=== PATIENT | male | born 1995 ===

== ENCOUNTER 2017-08-01 01:45 | Day surgery (SDC) | payer BC ==
[2017-08-01] VITALS (9 sets, daily range): BP systolic 113–144; BP diastolic 60–83
[~2017-08-01] VITALS: Ht 193 cm; Wt 104.8 kg
[~2017-08-01 01:45] MED LIST: ALB6.7R INH; BUDE10.2 INH; IBUP200C71 PO; LORA-629 PO; RANI-324 PO
[2017-08-01] MEDS: FAMOTIDINE 20 MG TAB PO ONE ×2 (10:36→10:38)
[2017-08-01] MEDS ORDERED: NORMOSOL R SOLN(*) 1000 ML BAG 1,000 ML IV PRN (11:00)
[2017-08-01] MEDS ORDERED: ceFAZolin(*) 1 GM VIAL 1 GM in NS(*) 0.9% 100 ML ADDVANT BAG 100 ML IVPB ONE (11:00)
[2017-08-01] MEDS ORDERED: MIDAZOLAM 2 MG/2 ML VIAL IVP PRN (11:00)
[2017-08-01] MEDS ORDERED: LIDOCAINE/SOD BICARB 8.4% SYR ID ONE (11:00)
[2017-08-01] MEDS ORDERED: ceFAZolin(*) 2GM/D5W 50ML 50 ML IVPB ONE (11:30)
[2017-08-01 11:39] LABS: PLATELET COUNT, AUTOMATED 243 K/uL (150-450)
[2017-08-01] MEDS ORDERED: fentaNYL CITR 250 MCG/5 ML AMP ONE (11:41)
[2017-08-01] MEDS ORDERED: PROPOFOL EMUL(*) 10MG/ML 20 ML 20 ML ONE (11:41)
[2017-08-01] MEDS ORDERED: DEXAMETHASONE SOD PHOS 10MG/ML ONE (11:41)
[2017-08-01] MEDS ORDERED: ONDANSETRON 4 MG/2 ML VIAL ONE (11:41)
[2017-08-01] MEDS ORDERED: SUGAMMADEX SOD 200 MG/2 ML SDV ONE (11:56)
[2017-08-01] MEDS ORDERED: ROCURONIUM BROM 10 MG/ML 10 ML ONE (12:00)
[2017-08-01] MEDS ORDERED: GLYCOPYRROLATE 0.2 MG/ML SDV ONE (12:00)
[2017-08-01] MEDS ORDERED: KETAMINE HCL 200 MG/20 ML MDV ONE (12:00)
[2017-08-01] MEDS ORDERED: ROPIVACAINE 0.5% 20 ML VIAL ONE (12:19)
[2017-08-01] MEDS ORDERED: HALOPERIDOL LACT 5 MG/ML VIAL IM ONE (13:33)
[2017-08-01] MEDS ORDERED: fentaNYL CITR 100 MCG/2 ML AMP ONE ×3 (14:27→15:51)
[2017-08-01] MEDS ORDERED: DOCU-416 PO (15:18)
[2017-08-01] MEDS ORDERED: OXYC-373 PO (15:18)
--- NOTE | 2017-08-01 15:21 | Short(Outpt) Discharge Summary ---
Discharge Summary Reason for Hosp/Final Diag: (1) Right inguinal hernia Status: Chronic Hospital Course & Plan: Robotic RIH repair completed without problems. Departure Discharge to: Home, Self Care Discharge Instructions Home Meds Active Scripts Docusate Sodium (COLACE) 100 Mg Capsule, 1 CAP PO BID, #30 CAP 0 Refills TAKE WITH A FULL GLASS OF WATER Prov:PINKY FRANKLIN MD 08/01/17 Oxycodone Hcl/Acetaminophen (OXYCODONE-ACETAMINOPHEN 5-325) 1 Each Tablet, 1-2 TAB PO Q4H Y for PAIN, #30 TAB 0 Refills Prov:PINKY FRANKLIN MD 08/01/17 Reported Medications Budesonide/Formoterol Fumarate (SYMBICORT 160-4.5 MCG INHALER) 10.2 Gm Inh, 10.2 GM INH BID, INH 07/25/17 Loratadine (LORATADINE) 10 Mg Tablet, 10 MG PO DAILY 07/25/17 Ranitidine Hcl (ZANTAC) 150 Mg Tablet, 150 MG PO BID, TAB 07/25/17 Albuterol Sulfate (PROVENTIL HFA) 6.7 Gm Inh, 1-2 PUFF INH BID, INH 07/12/17 Discontinued Reported Medications Ibuprofen (IBUPROFEN) Unknown Strength Capsule, PO Q6H, CAPSULE 07/12/17 Follow up Referrals: General Surgery - 08/23/17 @ Surgery, General with Pinky Franklin Md You have a follow up appointment scheduled with Dr. Franklin on 08/23/17, at 9:45am. Diet: Regular Activity: No Heavy Lifting Special Instructions: You may remove the white surgical dressings on 08/03/17, then you can shower. After showering, leave the incisions open to air but leave the steristrips in place until they fall off on their own. Do not immerse the incisions for 2 weeks. Avoid any activities that involve straining or lifting more than 10 pounds for 2 weeks. PINKY FRANKLIN MD Aug 01, 2017 15:21
--- NOTE | 2017-08-01 15:33 | Post Operative Progress Note ---
Post Operative Progress Note Date: Aug 01, 2017 Time: 15:20 Surgeon: Wyatt Dictation number: [id number] Anesthesia: GETA by Dr. Ellis Pre-Op Diagnosis: RIH Post-Op Diagnosis: COURTNEY, indirect Findings: Indirect RIH Procedure(s): Robotic RIH repair Specimen Removed:(May be N/A): None Complications: None Fluids: See anesthesia record Estimated Blood Loss: Minimal Date OP Note Dictated: Aug 01, 2017 Time OP Note Dictated: 15:22 PINKY FRANKLIN MD Aug 01, 2017 15:33
--- NOTE | 2017-08-01 23:43 | OPERATIVE REPORT 1 ---
EVENT DATE: August 01, 2017 SURGEON: Niels Schneider MD ANESTHESIOLOGIST: Allen Ellis MD ANESTHESIA: General endotracheal anesthesia. PREOPERATIVE DIAGNOSIS Right inguinal hernia. POSTOPERATIVE DIAGNOSIS Right inguinal hernia. PROCEDURE PERFORMED Robotic right inguinal hernia repair with mesh, transabdominal pre-peritoneal approach. COMPLICATIONS None. CONDITION Stable. BLOOD LOSS Minimal. FINDINGS This patient had an indirect right inguinal hernia. INDICATIONS This is a 21-year-old gentleman who presented to my office with a bulge in his right groin. It was getting bigger and causing him discomfort, and he was requesting to have it repaired. DESCRIPTION OF PROCEDURE The patient was brought to the operating room and placed supine on the operating table. General endotracheal anesthesia was administered, and his abdomen was prepped and draped in a sterile fashion. Timeout was completed. I injected the supraumbilical skin with 0.5% bupivacaine plain and made a curvilinear frowning face type incision in the superior umbilical rim. I dissected down through the dermis and subcutaneous fat. I identified the midline fascia and made a vertical incision in the midline fascia. I grasped the fascial edges with Grey clamps and retracted the abdominal wall towards the ceiling. I then bluntly entered the peritoneal cavity with my finger. I placed two interrupted 0 Vicryl sutures transversely through the vertical fascial defect and inserted the robotic Pradip-type 12 mm port through this. The port was secured in place with sutures. I insufflated the abdomen to a pressure of 15 mmHg and then inserted the robotic camera through this port. Under direct visualization, I placed an 8 mm robotic port in the right mid abdomen in about the midclavicular line and another 8 mm port in the left mid abdomen in about the midclavicular line. I then docked the robot, targeted it, and then inserted the ProGrasp grasper into the left mid abdominal port on the # 2 arm and then the scissors hooked up to electrocautery in the #4 arm while the camera was in the #3 arm. I then identified the anterior superior iliac spine on the right and had my bookkeeper assistant palpate. I started just medial to this and opened up the peritoneum starting at this point. Prior to this, I looked around the abdomen, and there was a small dent in the internal ring on the left side, but no obvious hernia, and it did not go down into the inguinal canal, so I left this alone. There were no other obvious abnormalities in the abdominal cavity. I continued dividing the peritoneum from lateral to medial over towards the medial umbilical ligament on the right towards the midline, and I even divided the ligament using electrocautery. This was done hemostatically. I then created a preperitoneal space all the way down until I identified the right pubic tubercle and Rocky ligament all the way from medial to lateral well below the iliopubic tract. I then identified the hernia sac and cord structures, and I stripped the hernia sac away from the cord structures. It went way down into the scrotum, and so I divided the hernia sac once I was dissecting for quite a while, but unable to find the end of it very easily. I then stripped it off from the cord structures so it came way back into the abdomen. I then skeletonized the cord structure to make sure there were no other abnormalities. I identified the gonadal veins and the vas deferens, and these were all preserved. The indirect space had no defect. I then inserted a right-sided ProGrip mesh into the abdominal cavity and then laid it so it laid nicely and appropriately over the right pubic tubercle and Rocky ligament. I unfurled it so it laid nicely and covered the entire the myopectineal orifice with several centimeters of overlap on all sides. Once it was secured in place , I then closed the peritoneal defect with running V-Loc absorbable suture. The hernia sac which I divided I included in the closure. It was sutured shut, so there was no communication at the end of this case between the peritoneal space and that pre-peritoneal space where the mesh was located. At this point, I desufflated the abdomen, removed the instruments, undocked the robot, and then closed the midline fascia with another [id number] 0 Vicryl suture. I tied all three of these down with good reapproximation of the fascial edges. I then closed the skin at each port site with 4-0 Monocryl subcuticular suture. The skin was cleaned and dried, and Steri-Strips were applied, followed by sterile surgical dressings. The patient was awakened and extubated in the operating room and transported to the recovery room in stable condition having tolerated the procedure without any apparent problems. LISY
== END 2017-08-01 16:15 | disposition home or self-care (01) ==
LOC: OR 01:45
PROVIDERS: ATTEND Surgery
DX: K40.90 Unilateral inguinal hernia, without obstruction or gangrene, not specified as recurrent (principal)
CPT/HCPCS: 36415; 49650; 85025; C1781; J1100; J1630; J2250; J2405; J2704; J2795; J3010; J3490; S2900; J0690

== ENCOUNTER 2017-11-28 13:14 | Emergency (ER) | payer BC ==
[~2017-11-28 13:14] MED LIST changes: -MULT-859 PO; -NEOM1PAC11 TP
--- NOTE | 2017-11-28 13:26 | ER Report ---
History and Physical Time Seen By MD: 13:25 Hx. of Stated Complaint: SUICIDAL IDEATION - HAD PISTOL IN MOUTH, HEAD BANGING AND CUTTING. HPI/ROS CHIEF COMPLAINT: Suicidal ideation HISTORY OF PRESENT ILLNESS: 22-year-old male patient presents to the emergency room with complaint of suicidal ideation. The patient states that he and his significant other broke up today. He states that during that argument that he grabbed his .22 pistol. He loaded 3 bullets into the magazine and cocked it putting one in the chamber. He states that he was trying to leave the house. He states he was going to get into his car and drive out of town likely towards feeling well. He states while he was there he was going to think about what is going to do weather is dry back to town, or whether to shoot himself. His significant other called the police. While the police were in route the patient gave the weapon to his significant other. While they're coming he was cutting his leg with a knife. Patient does have a laceration to the right thigh. Patient states that he is not homicidal. REVIEW OF SYSTEMS: Respiratory: No cough, no dyspnea. Cardiovascular: No chest pain, no palpitations. Gastrointestinal: No vomiting, no abdominal pain. Musculoskeletal: No back pain. Allergies: Coded Allergies: No Known Drug Allergies (Unverified , 11/28/17) Home Meds Reported Medications Budesonide/Formoterol Fumarate (SYMBICORT 160-4.5 MCG INHALER) 10.2 Gm Inh, 10.2 GM INH BID, INH 07/25/17 Albuterol Sulfate (PROVENTIL HFA) 6.7 Gm Inh, 1-2 PUFF INH BID, INH 07/12/17 Discontinued Reported Medications Ranitidine Hcl (ZANTAC) 150 Mg Tablet, 150 MG PO BID, TAB 07/25/17 Discontinued Scripts Docusate Sodium (COLACE) 100 Mg Capsule, 1 CAP PO BID, #30 CAP 0 Refills TAKE WITH A FULL GLASS OF WATER Prov:PINKY FRANKLIN MD 08/01/17 Oxycodone Hcl/Acetaminophen (OXYCODONE-ACETAMINOPHEN 5-325) 1 Each Tablet, 1-2 TAB PO Q4H Y for PAIN, #30 TAB 0 Refills Prov:PINKY FRANKLIN MD 08/01/17 Past Medical/Surgical History Patient has a past medical history of bronchitis, pneumonia, reflux, alcohol use. Patient has surgical history of hernia repair, knee surgery. Reviewed Nurses Notes: Yes Hx Smoking: No Smoking Status: Never Smoker Hx Alcohol Use: Yes Constitutional Vital Sign - Last 24 Hours 11/28/17 11/28/17 13:15 15:21 Temp 99.2 Pulse 136 112 Resp 20 18 B/P (MAP) 146/93 141/86 (104) Pulse Ox 92 94 O2 Delivery Room Air Room Air Physical Exam General Appearance: The patient is alert, has no immediate need for airway protection and no current signs of toxicity. ENT: Tympanic membranes are pearly-garcia, auditory canals are patent, mucus mucous membranes are moist. Respiratory: Chest is non tender, lungs are clear to auscultation. Cardiac: regular rate and rhythm Gastrointestinal: Abdomen is soft and non tender, no masses, bowel sounds normal. Musculoskeletal: Neck: Neck is supple and non tender. Extremities have full range of motion and are non tender. Skin: No rashes or lesions. Patient has a 1.5 cm laceration to the right upper leg. Does go into the subcutaneous tissue. DIFFERENTIAL DIAGNOSIS: After history and physical exam differential diagnosis was considered for suicidal ideation, laceration. Medical Decision Making Data Points Result Diagram: 11/28/17 1310 11/28/17 1310 Laboratory Hematology Test 11/28/17 13:10 11/28/17 13:55 Red Blood Count 5.73 M/uL (4.00-5.60) Mean Corpuscular Volume 86.6 fL (80.0-96.0) Mean Corpuscular Hemoglobin 29.8 pg (26.0-33.0) Mean Corpuscular Hemoglobin Concent 34.4 g/dL (32.0-36.0) Red Cell Distribution Width 13.2 % (11.5-14.5) Mean Platelet Volume 7.7 fL (7.2-11.1) Neutrophils (%) (Auto) 46.9 % (39.4-72.5) Lymphocytes (%) (Auto) 34.9 % (17.6-49.6) Monocytes (%) (Auto) 10.2 % (4.1-12.4) Eosinophils (%) (Auto) 7.4 % (0.4-6.7) Basophils (%) (Auto) 0.6 % (0.3-1.4) Nucleated RBC Relative Count (auto) 0.1 /100WBC Neutrophils # (Auto) 2.9 K/uL (2.0-7.4) Lymphocytes # (Auto) 2.1 K/uL (1.3-3.6) Monocytes # (Auto) 0.6 K/uL (0.3-1.0) Eosinophils # (Auto) 0.5 K/uL (0.0-0.5) Basophils # (Auto) 0.0 K/uL (0.0-0.1) Nucleated RBC Absolute Count (auto) 0.00 K/uL Sodium Level 144 mmol/L (137-145) Potassium Level 3.0 mmol/L (3.5-5.0) Chloride Level 99 mmol/L (98-107) Carbon Dioxide Level 25 mmol/L (22-30) Blood Urea Nitrogen 10 mg/dl (9-21) Creatinine 1.00 mg/dl (0.66-1.25) Glomerular Filtration Rate Calc > 60.0 Random Glucose 154 mg/dl (75-110) Calcium Level 9.7 mg/dl (8.4-10.2) Magnesium Level 2.2 mg/dl (1.7-2.2) Total Bilirubin 0.8 mg/dl (0.2-1.3) Aspartate Amino Transf (AST/SGOT) 34 U/L (0-35) Alanine Aminotransferase (ALT/SGPT) 41 U/L (0-56) Alkaline Phosphatase 89 U/L (0-126) Total Protein 7.8 gm/dl (6.3-8.2) Albumin 4.7 g/dl (3.5-5.0) Thyroid Stimulating Hormone (TSH) 1.74 uIU/ml (0.46-4.68) Salicylates Level < 10 mg/L Salicylate Last Dose Date unk Acetaminophen Level < 10 ug/ml Serum Alcohol 47 mg/dl Urine Color Straw Urine Clarity Clear Urine pH 7.0 pH (4.8-9.5) Urine Specific Allyn 1.003 Urine Protein Negative mg/dL (NEGATIVE) Urine Glucose (UA) 50 mg/dL (NEGATIVE) Urine Ketones Negative mg/dL (NEGATIVE) Urine Blood Negative (NEGATIVE) Urine Nitrite Negative (NEGATIVE) Urine Bilirubin Negative (NEGATIVE) Urine Urobilinogen Negative mg/dL (0.2-1.9) Urine Leukocyte Esterase Negative (NEGATIVE) Urine RBC <1 /HPF (0-2/HPF) Urine WBC None /HPF (0-5/HPF) Urine Squamous Epithelial Cells None /LPF (</=FEW) Urine Bacteria Negative /HPF (NONE-FEW) Urine Hyaline Casts Few /LPF (NONE-FEW) Urine Mucus None /HPF (NONE-FEW) Urine Opiates Screen Negative Urine Barbiturates Screen Negative Ur Tricyclic Antidepressants Screen Negative Urine Phencyclidine Screen Negative Urine Amphetamines Screen Negative Urine Benzodiazepines Screen Negative Urine Cocaine Screen Negative Urine Cannabinoids Screen Positive Chemistry Test 11/28/17 13:10 11/28/17 13:55 White Blood Count 6.1 k/uL (4.5-11.0) Red Blood Count 5.73 M/uL (4.00-5.60) Hemoglobin 17.1 g/dL (14.0-18.0) Hematocrit 49.6 % (42.0-52.0) Mean Corpuscular Volume 86.6 fL (80.0-96.0) Mean Corpuscular Hemoglobin 29.8 pg (26.0-33.0) Mean Corpuscular Hemoglobin Concent 34.4 g/dL (32.0-36.0) Red Cell Distribution Width 13.2 % (11.5-14.5) Platelet Count 213 K/uL (150-450) Mean Platelet Volume 7.7 fL (7.2-11.1) Neutrophils (%) (Auto) 46.9 % (39.4-72.5) Lymphocytes (%) (Auto) 34.9 % (17.6-49.6) Monocytes (%) (Auto) 10.2 % (4.1-12.4) Eosinophils (%) (Auto) 7.4 % (0.4-6.7) Basophils (%) (Auto) 0.6 % (0.3-1.4) Nucleated RBC Relative Count (auto) 0.1 /100WBC Neutrophils # (Auto) 2.9 K/uL (2.0-7.4) Lymphocytes # (Auto) 2.1 K/uL (1.3-3.6) Monocytes # (Auto) 0.6 K/uL (0.3-1.0) Eosinophils # (Auto) 0.5 K/uL (0.0-0.5) Basophils # (Auto) 0.0 K/uL (0.0-0.1) Nucleated RBC Absolute Count (auto) 0.00 K/uL Glomerular Filtration Rate Calc > 60.0 Calcium Level 9.7 mg/dl (8.4-10.2) Magnesium Level 2.2 mg/dl (1.7-2.2) Total Bilirubin 0.8 mg/dl (0.2-1.3) Aspartate Amino Transf (AST/SGOT) 34 U/L (0-35) Alanine Aminotransferase (ALT/SGPT) 41 U/L (0-56) Alkaline Phosphatase 89 U/L (0-126) Total Protein 7.8 gm/dl (6.3-8.2) Albumin 4.7 g/dl (3.5-5.0) Thyroid Stimulating Hormone (TSH) 1.74 uIU/ml (0.46-4.68) Salicylates Level < 10 mg/L Salicylate Last Dose Date unk Acetaminophen Level < 10 ug/ml Serum Alcohol 47 mg/dl Urine Color Straw Urine Clarity Clear Urine pH 7.0 pH (4.8-9.5) Urine Specific Allyn 1.003 Urine Protein Negative mg/dL (NEGATIVE) Urine Glucose (UA) 50 mg/dL (NEGATIVE) Urine Ketones Negative mg/dL (NEGATIVE) Urine Blood Negative (NEGATIVE) Urine Nitrite Negative (NEGATIVE) Urine Bilirubin Negative (NEGATIVE) Urine Urobilinogen Negative mg/dL (0.2-1.9) Urine Leukocyte Esterase Negative (NEGATIVE) Urine RBC <1 /HPF (0-2/HPF) Urine WBC None /HPF (0-5/HPF) Urine Squamous Epithelial Cells None /LPF (</=FEW) Urine Bacteria Negative /HPF (NONE-FEW) Urine Hyaline Casts Few /LPF (NONE-FEW) Urine Mucus None /HPF (NONE-FEW) Urine Opiates Screen Negative Urine Barbiturates Screen Negative Ur Tricyclic Antidepressants Screen Negative Urine Phencyclidine Screen Negative Urine Amphetamines Screen Negative Urine Benzodiazepines Screen Negative Urine Cocaine Screen Negative Urine Cannabinoids Screen Positive Toxicology Test 11/28/17 13:10 11/28/17 13:55 Salicylates Level < 10 mg/L Salicylate Last Dose Date unk Acetaminophen Level < 10 ug/ml Serum Alcohol 47 mg/dl Urine Opiates Screen Negative Urine Barbiturates Screen Negative Ur Tricyclic Antidepressants Screen Negative Urine Phencyclidine Screen Negative Urine Amphetamines Screen Negative Urine Benzodiazepines Screen Negative Urine Cocaine Screen Negative Urine Cannabinoids Screen Positive Urinalysis Test 11/28/17 13:55 Urine Color Straw Urine Clarity Clear Urine pH 7.0 pH (4.8-9.5) Urine Specific Allyn 1.003 Urine Protein Negative mg/dL (NEGATIVE) Urine Glucose (UA) 50 mg/dL (NEGATIVE) Urine Ketones Negative mg/dL (NEGATIVE) Urine Blood Negative (NEGATIVE) Urine Nitrite Negative (NEGATIVE) Urine Bilirubin Negative (NEGATIVE) Urine Urobilinogen Negative mg/dL (0.2-1.9) Urine Leukocyte Esterase Negative (NEGATIVE) Urine RBC <1 /HPF (0-2/HPF) Urine WBC None /HPF (0-5/HPF) Urine Squamous Epithelial Cells None /LPF (</=FEW) Urine Bacteria Negative /HPF (NONE-FEW) Urine Hyaline Casts Few /LPF (NONE-FEW) Urine Mucus None /HPF (NONE-FEW) ED Course/Re-evaluation ED Course Patient was admitted, examined, history and physical were obtained. On examination patient has a 1.5 cm laceration to the right thigh. Patient was detained by the police. Lab work for a behavioral health admission were done. The labs were unremarkable. I discussed the findings with patient. I did discuss the case with Dr. Butler. With patient trying to leave the house with a loaded gun and having a thought about committing suicide I think the patient is too high risk to go home. I will uphold the group home. Patient will be admitted to behavioral health. Dr. Butler agreed and did agree to accept the patient for admission. I discussed the patient who verbalized understanding and agreement. Procedure: Laceration repair. Verbal consent was obtained from the patient. The 1.5 cm laceration on the right thigh was anesthetized in the usual fashion. The wound was scrubbed, draped and explored to its base with a gloved finger. There were no deep structures involved. No tendon injury was identified. The wound was repaired with 4 simple interrupted sutures using 5-0 Prolene material. The wound repair was simple. The procedure was performed by myself. Decision to Disposition Date: November 28, 2017 Decision to Disposition Time: 15:04 Depart Departure Latest Vital Signs Vital Signs Date Time Temp Pulse Resp B/P (MAP) Pulse Ox O2 Delivery O2 Flow Rate FiO2 11/28/17 15:21 112 18 141/86 (104) 94 Room Air 11/28/17 13:15 99.2 Impression: Primary Impression: Suicidal ideation Condition: Condition Unchanged Disposition: XFER TO [facility] Referrals: MARLEY HENDRICKSON (PCP) FARIDA FERNANDO November 28, 2017 13:26
[2017-11-28 13:44] LABS: PLATELET COUNT, AUTOMATED 213 K/uL (150-450)
[2017-11-28] MEDS ORDERED: DIPHTH/TETANUS/ACEL. PERTUSSIS IM ONLY ONE (13:45)
[2017-11-28 15:21] VITALS: BP 141/86
--- NOTE | 2017-11-28 15:54 | BHS - Psychiatric Evaluation ---
ER - Title 25 MHE Evaluation Title 25 Evaluation Patient Detained By: Law Enforcement Referral Source: Significant other Date Patient Detained: November 28, 2017 Time Patient Detained: 13:30 Date Long-Term Expires: December 04, 2017 Time Long-Term Expires: 13:30 Legal Status: Police Hold: No Legal Status: Residence: State Resident, Student Assessment Data Provided By: Law Enforcement HPI/ROS: Please look at HPI from my note Admit due to SI or Attempt: Yes Suicide Plan: Has Plan with Access Alcohol or Drugs Involved: Yes Mental Status Exam General Appearance: Cooperative, Tearful Speech: Spontaneous, Normal Rate, Normal Rhythm Mood: Dysthmic/Depressed Affect: Sad, Tearful Thought Process: Logical Thought Content: Suicidal Ideation Sensorium: Clear Cognition: Alert & Oriented-Person, Alert & Oriented-Place, Alert & Oriented- Time, Fizpc-Kbhnpoke-Cjksrcaxi Memory: Immediate, Recent, Remote Insight Judgment: Intact, Appropriate Sleep: Normal Hallucinations: Denies Delusions: Denies Current Risk & History Current Dangerous Risk Assessm: Current Suicide Ideation Past Dangerous Risk Assessm: Suicide Ideation-last 6mo Prior Alcohol/Drug Abuse Marijuana use, alcohol use Previous Suicide Attempt: No Previous Attempt Previous Psychiatric Illness: No Previous Psychiatric Treatment: No Risk Assessment & Disposition Evaluated Risk Assessment: I feel that the patient has a plan, access carryout the plan. Patient had gotten her hand and was trying to leave the house with the goal of being alone, and was unsure whether not he wanted to commit suicide at that time. I feel the situation is too risky and patient needs to be detained for psychological evaluation. I discussed this with the patient who verbalized understanding. Impression: Primary Impression: Suicidal ideation Meets Mental Illness Req.: Yes Meets Dangerousness Req.: Yes Emergency Long-Term to be: Upheld Date of Decision: November 28, 2017 Time of Decision: 13:45 Patient is Medically Stable at: Yes Disposition: FARIDA AMIN November 28, 2017 15:54
== END 2017-11-28 15:27 ==
LOC: ER 13:20
DX: R45.851 Suicidal ideations (principal); S71.111A Laceration without foreign body, right thigh, initial encounter
CPT/HCPCS: 80305; 80320; 80329; 81001; 82040; 82247; 82310; 82374; 82435; 82565; 82947; 83735; 84075; 84132; 84155; 84295; 84443; 84450; 84460; 84520; 85025; 90471; 90715; 99285

== ENCOUNTER 2017-11-28 15:11 | Inpatient (IN) | payer BC ==
[~2017-11-28] VITALS: Ht 193 cm; Wt 106.6 kg
[2017-11-28] MEDS ORDERED: MAG HYD/AL HYD/SIMETH 30ML UDC PO PRN (15:35)
[2017-11-28 16:15] VITALS: BP 139/92
[2017-11-28] MEDS ORDERED: ALBUTEROL SULFATE 90 MCG/ACT 8.5 GM HNH INH PRN (18:45)
[2017-11-29 04:08] VITALS: BP 138/86
[2017-11-29] MEDS: BUDESO/FORMOT 80/4.5 MCG 6.9GM INH SCH ×2 (04:56→16:57)
[2017-11-29] MEDS ORDERED: IBUPROFEN 600 MG TAB PO PRN (08:15)
[2017-11-29] MEDS: MULTIVITAMINS TAB PO SCH (08:18)
[2017-11-29 14:45] VITALS: BP 140/82
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
[2017-11-30 04:20] VITALS: BP 139/84
[2017-11-30] MEDS: BUDESO/FORMOT 80/4.5 MCG 6.9GM INH SCH ×2 (05:08→18:12)
[2017-11-30] MEDS: MULTIVITAMINS TAB PO SCH (08:34)
--- NOTE | 2017-11-30 10:45 | BHS Progress Note ---
[facility] - Subjective Progress Notes Subjective "I've had a lot of stress, school and finances, and my girlfriend is in the process of moving out and that was the straw that broke the camel's back." Slept well last night Tearful as discusses admission, disclosing to father he was admitted, ongoing stress w/recent breakup Rating depression/anxiety 10/15 Denies urge for self harm, SI/HI Right upper leg cutting upon admit Suicidal Ideation: None Homicidal Ideation: None [facility] - Objective Physical Exam Vital Signs Vital Signs Date Time Temp Pulse Resp B/P (MAP) Pulse Ox O2 Delivery O2 Flow Rate FiO2 11/30/17 05:08 98 Room Air 11/30/17 05:08 98 16 11/30/17 04:20 98.0 139/84 (102) Deferred Allergies Coded Allergies No Known Drug Allergies (Unverified11/28/17) Muscle Strength and Tone: WNL Gait and Station: Steady [facility] Medications Reviewed: Side Effects, Benefits of Medication, Risks Allergies Reviewed: Yes Mental Status Exam General Appearance: Casual, Well Groomed, Good Eye Contact, Cooperative, Polite , Good Interaction Speech: Clear, Spontaneous, Normal Rate, Normal Rhythm, Normal Volume, Normal Tone Mood: Dysthmic/Depressed, No Euthymic (tearful as discusses recent stressors) Affect: Full and Appropriate, Calm, Tearful (when talks of girlfriend moving out) Thought Process: Organized, Logical, Goal Directed Thought Content: No Suicidal Ideation, No Homicidal Ideation, No Delusions, No Auditory Halllucinations, No Visual Hallucinations, No Thought Broadcasting, No Ideas of Reference, No Obsessions, No Compulsions Sensorium: Clear Cognition: Alert & Oriented-Person, Alert & Oriented-Place, Alert & Oriented- Time, Qechb-Zujneomt-Gehurwwxk Memory: Immediate, Recent, Remote Intelligence: Average Insight Judgment: Intact, Appropriate Microbiology Allergies Coded Allergies No Known Drug Allergies (Unverified11/28/17) Imaging Vital Signs Date Time Temp Pulse Resp B/P (MAP) Pulse Ox O2 Delivery O2 Flow Rate FiO2 11/30/17 05:08 98 Room Air 11/30/17 05:08 98 16 11/30/17 04:20 98.0 139/84 (102) [facility] Assessment and Plan Zblt-ll-[id number] Encounter Date: November 30, 2017 Kkjx-ay-Gkbq Encounter Time: 10:39 [facility] Plan: Admit to Unit, Necessary Precautions, Individual/Group Therapy, Admin /Titrate Meds Problems: (1) Adjustment disorder with mixed anxiety and depressed mood Status: Acute (2) Suicidal ideation Status: Resolved (3) Cannabis abuse Status: Chronic Condition Continue individual therapy Treatment team w/mother 12/01/17 LINDA CHANEY NP November 30, 2017 10:45
[2017-11-30 12:25] VITALS: BP 108/74
[2017-11-30] MEDS ORDERED: NEOMYCIN/POLYMYX/BACITR 30 GM TP PRN (13:00)
[2017-11-30 14:43] LABS: PLATELET COUNT, AUTOMATED 272 K/uL (150-450)
[2017-11-30 21:37] VITALS: BP 134/82
[2017-12-01 05:42] VITALS: BP 112/68
[2017-12-01] MEDS: BUDESO/FORMOT 80/4.5 MCG 6.9GM INH SCH (07:15)
[2017-12-01] MEDS: MULTIVITAMINS TAB PO SCH (08:13)
--- NOTE | 2017-12-01 09:25 | BHS Progress Note ---
[facility] - Subjective Progress Notes Subjective "I feel a lot better." Rating depression "2" denies anxiety, anger "2", Denies urge for self harm, suicidal, homicidal ideation Conference call w/mother via phone Denies urge for self harm i.e. cutting Suicidal Ideation: None Homicidal Ideation: None [facility] - Objective Physical Exam Vital Signs Allergies Coded Allergies No Known Drug Allergies (Unverified11/28/17) Muscle Strength and Tone: WNL Gait and Station: Steady [facility] Medications Reviewed: Side Effects, Benefits of Medication, Risks Allergies Reviewed: Yes Mental Status Exam General Appearance: Casual, Well Groomed, Good Eye Contact, Cooperative, Polite , Good Interaction Speech: Clear, Spontaneous, Normal Rate, Normal Rhythm, Normal Volume, Normal Tone Mood: Dysthmic/Depressed (rating depression "2"), No Euthymic (tearful as discusses recent stressors) Affect: Full and Appropriate, Calm, Tearful (when talks of girlfriend moving out) Thought Process: Organized, Logical, Goal Directed Thought Content: No Suicidal Ideation, No Homicidal Ideation, No Delusions, No Auditory Halllucinations, No Visual Hallucinations, No Thought Broadcasting, No Ideas of Reference, No Obsessions, No Compulsions Sensorium: Clear Cognition: Alert & Oriented-Person, Alert & Oriented-Place, Alert & Oriented- Time, Eseuv-Qimgydrq-Fmkymxbms Memory: Immediate, Recent, Remote Intelligence: Average Insight Judgment: Intact, Appropriate Result Diagram: 11/30/17 1410 11/30/17 1410 Lab Vital Signs Date Time Temp Pulse Resp B/P (MAP) Pulse Ox O2 Delivery O2 Flow Rate FiO2 12/01/17 05:42 97.9 74 112/68 (83) 93 Room Air 11/30/17 12:25 16 Allergies Coded Allergies No Known Drug Allergies (Unverified11/28/17) [facility] Assessment and Plan Rqnl-wv-[id number] Encounter Date: December 01, 2017 Niia-ce-Nzrt Encounter Time: 10:00 [facility] Plan: Admit to Unit, Necessary Precautions, Individual/Group Therapy, Admin /Titrate Meds Problems: (1) Adjustment disorder with mixed anxiety and depressed mood Status: Acute (2) Suicidal ideation Status: Resolved (3) Cannabis abuse Status: Chronic Condition Discuss discharge planning Conference call w/mother who is traveling to [place], plan for discharge today upon mother's arrival Extensive discharge review including follow up w/outpatient therapist with recommendations provided Mother to ensure no firearms in home Encourage avoidance of etoh, substances Encourage use of crisis line, to return to ER for SI/HI LINDA CHANEY NP December 01, 2017 09:25
[2017-12-01] MEDS ORDERED: MULT-859 PO (09:55)
[2017-12-01] MEDS ORDERED: NEOM1PAC11 TP (09:56)
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
== END 2017-12-01 14:55 | disposition home or self-care (01) | DRG 881 ==
LOC: INTOOBSV 15:11 → OBSVTOIN 15:11 → BHS 15:11 → UNDOADMOB 15:11 → BHS 11-30 11:27
PROVIDERS: ADMIT Psychiatry & Neurology Psychiatry; ATTEND Psychiatry & Neurology Psychiatry
DX: F43.21 Adjustment disorder with depressed mood (principal); R45.851 Suicidal ideations; F15.24 Other stimulant dependence with stimulant-induced mood disorder; S71.111A Laceration without foreign body, right thigh, initial encounter; X78.1XXA Intentional self-harm by knife, initial encounter; Y92.009 Unspecified place in unspecified non-institutional (private) residence as the place of occurrence of the external cause; Y99.8 Other external cause status; Y90.1 Blood alcohol level of 20-39 mg/100 ml; Z62.811 Personal history of psychological abuse in childhood; Z91.5 Personal history of self-harm; Z63.0 Problems in relationship with spouse or partner; Z73.3 Stress, not elsewhere classified; Z55.9 Problems related to education and literacy, unspecified; Z59.9 Problem related to housing and economic circumstances, unspecified
CPT/HCPCS: 36415; 82040; 82247; 82310; 82374; 82435; 82565; 82947; 83036; 84075; 84132; 84155; 84295; 84450; 84460; 84520; 85025; 94640

== ENCOUNTER → 2017-11-28 | Outpatient (CLI) | payer BC ==
[~2017-11-28] MED LIST changes: +DOCU-416 PO; +MULT-859 PO; +NEOM1PAC11 TP; +OXYC-373 PO; -RANI-324 PO; +RANI-366 PO
== END ==
LOC: AMB 12:46
PROVIDERS: ATTEND Nurse Practitioner
DX: R45.851 Suicidal ideations (principal); S71.111A Laceration without foreign body, right thigh, initial encounter; F10.129 Alcohol abuse with intoxication, unspecified; X78.1XXA Intentional self-harm by knife, initial encounter
CPT/HCPCS: A0425; A0427